=== PATIENT | female | born 1975 | race Caucasian/White ===

== ENCOUNTER → 2016-06-07 | Outpatient (CLI) | payer OTHER ==
[~2016-06-07] MED LIST: EFF75 PO; FERR1TAB23; IBUP-103 PO; LEVO50TA6 PO; MULT-513 PO; PREN-83 PO
[2016-06-07 15:40] LABS: THYROID STIMULATING HORMONE 1.59 uIu/ml (0.300-4.500)
[2016-06-07 17:46] LABS: GTGD 50 Grams
== END | disposition home or self-care (01) ==
LOC: C.LAB1850 14:32
PROVIDERS: ATTEND Obstetrics & Gynecology
DX: O99.281 Endocrine, nutritional and metabolic diseases complicating pregnancy, first trimester (principal)

== ENCOUNTER → 2016-07-06 | Outpatient (CLI) | payer OTHER ==
[2016-07-06 15:56] LABS: THYROID STIMULATING HORMONE 2.01 uIu/ml (0.300-4.500)
== END | disposition home or self-care (01) ==
LOC: C.LAB1850 14:41
PROVIDERS: ATTEND Obstetrics & Gynecology
DX: O99.282 Endocrine, nutritional and metabolic diseases complicating pregnancy, second trimester (principal); Z14.8 Genetic carrier of other disease

== ENCOUNTER → 2016-08-03 | Outpatient (CLI) | payer OTHER ==
[2016-08-11 06:18] LABS: CHENODEOXYCHOLIC ACID 0.5 umol/L (< OR = 3.1); CHOLIC ACID 1.4 umol/L (< OR = 1.8); DEOXYCHOLIC ACID <0.5 umol/L (< OR = 2.4); TOTAL BILE ACIDS 1.9 umol/L (< OR = 6.8)
== END | disposition home or self-care (01) ==
LOC: C.LAB1850 15:07
PROVIDERS: ATTEND Obstetrics & Gynecology
DX: L29.9 Pruritus, unspecified (principal)

== ENCOUNTER → 2016-08-31 | Outpatient (CLI) | payer OTHER ==
[2016-08-31 16:05] LABS: URINE APPEARANCE CLEAR (CLEAR); URINE BILIRUBIN NEG (NEG); URINE COLOR YELLOW; URINE EPITHELIAL CELL AUTO 20-30 /lpf (0-5); URINE NITRITE NEG (NEG); URINE PH 6.5 (4.5-7.5); URINE SPECIFIC GRAVITY 1.021 (1.000-1.030); UROBILINOGEN NEG (NEG)
[2016-08-31 16:10] LABS: MANUAL MICROSCOPIC REQUIRED? NO; REVIEW REQ? NO
[2016-08-31 16:50] LABS: HEMATOCRIT 30.5 % (37-47)
[2016-08-31 17:09] LABS: THYROID STIMULATING HORMONE 1.7 uIu/ml (0.300-4.500)
[2016-09-01 09:09] LABS: GTGD 50 Grams
== END | disposition home or self-care (01) ==
LOC: C.LAB1850 15:00
PROVIDERS: ATTEND Obstetrics & Gynecology
DX: O09.513 Supervision of elderly primigravida, third trimester (principal); Z3A.00 Weeks of gestation of pregnancy not specified; O99.282 Endocrine, nutritional and metabolic diseases complicating pregnancy, second trimester; E03.9 Hypothyroidism, unspecified

== ENCOUNTER → 2016-09-07 | Outpatient (CLI) | payer OTHER | END | disposition home or self-care (01) | LOC: C.LAB1850 08:50 | PROVIDERS: ATTEND Obstetrics & Gynecology | DX: O28.1 Abnormal biochemical finding on antenatal screening of mother (principal) ==

== ENCOUNTER → 2016-09-27 | Outpatient (CLI) | payer OTHER ==
[2016-09-27 10:17] LABS: THYROID STIMULATING HORMONE 3.27 uIu/ml (0.300-4.500)
== END | disposition home or self-care (01) ==
LOC: C.LAB1850 08:52
PROVIDERS: ATTEND Obstetrics & Gynecology
DX: O99.283 Endocrine, nutritional and metabolic diseases complicating pregnancy, third trimester (principal); Z3A.00 Weeks of gestation of pregnancy not specified

== ENCOUNTER → 2016-10-28 | Outpatient (CLI) | payer OTHER | END | disposition home or self-care (01) | LOC: C.LABSPEC 15:45 | PROVIDERS: ATTEND Obstetrics & Gynecology | DX: O09.93 Supervision of high risk pregnancy, unspecified, third trimester (principal); Z3A.00 Weeks of gestation of pregnancy not specified ==

== ENCOUNTER → 2016-11-14 | Outpatient (CLI) | payer OTHER ==
[2016-11-14 08:26] LABS: PATIENT HEIGHT 172.7 cm
[2016-11-14 10:23] LABS: URINE TOTAL PROTEIN 31.3 mg/dl (0-11.9)
[2016-11-14 10:40] LABS: CREATININE 0.99 mg/dl (0.6-1.2); URINE TOTAL PROTEIN CALC 309.9 mg/24 hr (0-149.1)
== END | disposition home or self-care (01) ==
LOC: C.LAB1850 08:18
PROVIDERS: ATTEND Obstetrics & Gynecology
DX: O12.13 Gestational proteinuria, third trimester (principal)

== ENCOUNTER 2016-11-15 13:16 | Emergency (ER) | payer OTHER ==
[~2016-11-15] VITALS: Ht 172.7 cm; Wt 86.0 kg
[~2016-11-15 13:16] MED LIST changes: -EFF75 PO; -FERR1TAB23; -PREN-83 PO
[2016-11-15 13:18] VITALS: TEMP 36.7; Ht 172.7 cm; Wt 86.0 kg
[2016-11-15] MEDS ORDERED: ONDANSETRON INJ 2 MG/ML 2 ML VIAL IV STA (14:01)
[2016-11-15 14:11] LABS: BASO % 0.1 %; BASO ABS # 0.01 K/uL (0-0.2); COMPLETE YES; EOS % 0.5 %; IG% 0.1 %; LYMPH % 22.2 %; LYMPH ABS # 1.65 K/uL (1.2-3.4); MEAN CELL VOLUME 88.6 fL (80-100); MEAN CORPUSCULAR HEMOGLOBIN 30.6 pg (25-34); MEAN CORPUSCULAR HGB CONC 34.5 g/dl (32-36); MEAN PLATELET VOLUME 12.9 fL (7.4-10.4); MONO % 7.8 %; NEUT % 69.3 %; PLATELET COUNT 142 K/uL (130-400); WHITE BLOOD COUNT 7.44 K/uL (4.8-10.8)
[2016-11-15] MEDS ORDERED: SODIUM CHLORIDE 0.9% 1000ML 1,000 ML IV ONE (14:15)
[2016-11-15 14:36] LABS: ALKALINE PHOSPHATASE 260 U/L (45-117); ALT/SGPT 16 U/L (12-78); AST/SGOT 21 U/L (15-37); BLOOD UREA NITROGEN 12 mg/dl (7-18); BUN/CREATININE RATIO 11.3 (10-20); CALCIUM 8.1 mg/dl (8.5-10.1); CARBON DIOXIDE 16 mmol/L (21-32); CHLORIDE 111 mmol/L (98-107); GLUCOSE 134 mg/dl (70-99); SODIUM 141 mmol/L (136-145)
--- NOTE | 2016-11-15 15:12 | DIAGNOSTIC IMAGING REPORT ---
MRI OF THE BRAIN WITHOUT CONTRAST CLINICAL HISTORY: Headache, visual changes, lightheadedness. . COMPARISON STUDY: None. FINDINGS: Sagittal T1, axial diffusion, proton density and T2 weighted axial, coronal FLAIR, and axial T1-weighted images were acquired. No intra or extra-axial mass lesions are visualized Axial diffusion-weighted images reveal no evidence of acute or subacute infarction. There is no evidence of ventricular dilatation. Proton density T2-weighted and FLAIR images reveal a single 2 mm focus of increased T2 and FLAIR signal within the left frontal white matter. There are no abnormal flow voids. IMPRESSION: Single nonspecific 2 mm focus of increased T2 and FLAIR signal within the left frontal white matter. Otherwise normal noncontrast MRI of the brain Electronically signed by: Michael Benson M.D. 11/15/2016 3:11 PM Dictated Date/Time: 11/15/2016 3:09 PM
[2016-11-15] MEDS ORDERED: PREN-83 PO (15:16)
[2016-11-15 15:26] VITALS: BP 110/89; PULSE 92; O2SAT 98
[2016-11-15 15:47] LABS: URINE APPEARANCE CLEAR (CLEAR); URINE BILIRUBIN NEG (NEG); URINE COLOR DK YELLOW; URINE EPITHELIAL CELL AUTO >30 /lpf (0-5); URINE NITRITE NEG (NEG); URINE SPECIFIC GRAVITY 1.033 (1.000-1.030); UROBILINOGEN NEG (NEG)
[2016-11-15 15:49] LABS: MANUAL MICROSCOPIC REQUIRED? NO; REVIEW REQ? NO
[2016-11-15] MEDS ORDERED: FERR1TAB23 (19:48)
[2016-11-15] MEDS ORDERED: EFF75 PO (19:48)
--- NOTE | 2016-11-16 01:14 | EMERGENCY ROOM VISIT NOTE ---
ED Visit Note First contact with patient: 13:31 Chief Complaint: Vision changes. History of Present Illness: Ms. Mattson is a 40-year-old white female who ambulates into the ED accompanied by her complaining of headache, lightheadedness and visual changes. Patient is 1 para 0 with an EDC of November 25. Historically patient reports last week she was diagnosed with preeclampsia by her [facility] with the symptoms of headache, leg swelling and proteinuria. She was seen yesterday at her [facility] and they reported there was a decrease in her proteinuria and resolution of her lower leg swelling and headache. She goes on to report that they considered inducing her yesterday but was not able to perceive. Patient reports last night she had return of moderate to severe nausea/vomiting from earlier in her . This morning she reports awaking from sleep with a bifrontal headache, visual changes, lightheadedness, "disorientation" and upper extremity joint pains. She describes a throbbing sensation in the bifrontal area. She rates this discomfort 6/10. Her pain is nonradiating. She has not identified any aggravating or alleviating factors related to the pain. She has not taken any medications for pain prior to arrival at the hospital. As previously noted she reports vision changes and describes her vision changes "as walking in a dark room after being in the sun" she reports the symptoms have been ongoing since they started and has been slowly returning to normal. Additionally she reports she has a sensation that "when looks around my vision cannot keep up with her eyes and there is a slight delay." Additionally she reports that she is lightheaded and is having paresthesias in the shoulders, arms and wrists. She has been nauseated but has not vomited this morning. Additionally she reports she is feeling disoriented and describes this as "not being able to answer questions immediately and has to think about her answers". And she has been having increasing ringing in her ears. Lastly she reports due to her regnancy and sitting or lying down she has shortness of breath. The shortness of breath resolves after she is standing in the fetuses dependent. This has been ongoing and has not significantly changed over the last 24-48 hours. She denies any associated recent head trauma, dizziness, difficulty speaking, difficulty walking/coordinating body movements, neck/back pain, upper respiratory tract symptoms cough, wheezing, chest pain/discomfort, palpitations , abdominal pain, diarrhea, constipation, urinary symptoms, back/flank pain, extremity weakness. Review of Systems: As noted above in history of present illness. All body systems were reviewed and found to be negative as noted above. Past Medical History: As previously noted Current Medications: Levothyroxine, vitamins. Allergies to Medications: Patient denies. Social History: Patient is currently employed; she feels safe in her home environment; she denies tobacco and alcohol use. Physical Examination: Vital Signs: Date Time Temp Pulse Resp B/P (MAP) Pulse Ox O2 Delivery O2 Flow Rate FiO2 11/15/16 15:26 92 18 110/89 98 Room Air 11/15/16 14:35 97 24 145/74 99 Room Air 11/15/16 13:54 109 11/15/16 13:18 36.7 107 20 132/92 98 GENERAL: 40-year-old female in mild distress due to pain and appears mildly dyspneic with pursed lips with breathing and a slight increase in respiratory rate, nontoxic-appearing, afebrile and hemodynamically stable. NEUROLOGICAL: Awake, alert and oriented to person, place and time. Answering questions appropriately and following commands. Normal gait. Cranial nerves II through XII grossly intact. Good hand eye coordination. No focal motor or sensory deficits. Good short-term and long-term recall. SKIN: Warm, dry and pink. No soft tissue eruptions or trauma noted. HEENT: Atraumatic and normocephalic. PERRLA. EOMI without nystagmus. Sclera white and conjunctiva pink. No frontal tenderness or erythema. No drainage from naris. Oral cavity moist and pink. Pharynx is nonerythematous or edematous. Speech normal. No lymphadenopathy. Trachea midline. No jugular venous distention. BACK: No tenderness over the bony spine. Full range of motion of the cervical spine. No CVA tenderness. THORAX: Lungs sounds are clear to auscultation and equal bilaterally with symmetrical chest wall. No wheezing, rales or rhonchi. No crepitus, tenderness , subcutaneous air or deformities noted. HEART: Tachycardic rate and rhythm. No gallops, rubs or murmurs are appreciated. ABDOMEN: , soft and nontender. Positive bowel sounds in all quadrants. No guarding, rigidity or organomegaly. EXTREMITIES: Moves all extremities well on command and with purpose. All distal neurovascular statuses are intact and equal bilaterally. No dependent edema. No calf tenderness or cords. ED Course: Patient is assessed as noted above. Patient's medication list was reviewed. Laboratory Testing: Test 11/15/16 00:00 11/15/16 13:50 Range/Units Urine Color DK YELLOW Urine Appearance CLEAR CLEAR Urine pH 6.0 4.5-7.5 Urine Specific [place] 1.033 1.000-1.030 Urine Protein TRACE NEG Urine Glucose (UA) NEG NEG Urine Ketones TRACE NEG Urine Occult Blood NEG NEG Urine Nitrite NEG NEG Urine Bilirubin NEG NEG Urine Urobilinogen NEG NEG Urine Leukocyte Esterase NEG NEG Urine WBC (Auto) 1-5 0-5 /hpf Urine RBC (Auto) 0-4 0-4 /hpf Urine Hyaline Casts (Auto) 1-5 0-5 /lpf Urine Epithelial Cells (Auto) >30 0-5 /lpf Urine Bacteria (Auto) NEG NEG White Blood Count 7.44 4.8-10.8 K/uL Red Blood Count 3.50 4.2-5.4 M/uL Hemoglobin 10.7 12.0-16.0 g/dL Hematocrit 31.0 37-47 % Mean Corpuscular Volume 88.6 80-100 fL Mean Corpuscular Hemoglobin 30.6 25-34 pg Mean Corpuscular Hemoglobin Concent 34.5 32-36 g/dl Platelet Count 142 130-400 K/uL Mean Platelet Volume 12.9 7.4-10.4 fL Neutrophils (%) (Auto) 69.3 % Lymphocytes (%) (Auto) 22.2 % Monocytes (%) (Auto) 7.8 % Eosinophils (%) (Auto) 0.5 % Basophils (%) (Auto) 0.1 % Neutrophils # (Auto) 5.15 1.4-6.5 K/uL Lymphocytes # (Auto) 1.65 1.2-3.4 K/uL Monocytes # (Auto) 0.58 0.11-0.59 K/uL Eosinophils # (Auto) 0.04 0-0.5 K/uL Basophils # (Auto) 0.01 0-0.2 K/uL RDW Standard Deviation 41.6 36.4-46.3 fL RDW Coefficient of Variation 13.0 11.5-14.5 % Immature Granulocyte % (Auto) 0.1 % Immature Granulocyte # (Auto) 0.01 0.00-0.02 K/uL Sodium Level 141 136-145 mmol/L Potassium Level 4.0 3.5-5.1 mmol/L Chloride Level 111 98-107 mmol/L Carbon Dioxide Level 16 21-32 mmol/L Anion Gap 14.0 3-11 mmol/L Blood Urea Nitrogen 12 7-18 mg/dl Creatinine 1.10 0.60-1.20 mg/dl Est Creatinine Clear Calc Drug Dose 79.6 ml/min Estimated GFR () 73.8 Estimated GFR (Non- 63.6 BUN/Creatinine Ratio 11.3 10-20 Random Glucose 134 70-99 mg/dl Calcium Level 8.1 8.5-10.1 mg/dl Magnesium Level 2.0 1.8-2.4 mg/dl Total Bilirubin 0.4 0.2-1 mg/dl Direct Bilirubin 0-0.2 mg/dl Aspartate Amino Transf (AST/SGOT) 21 15-37 U/L Alanine Aminotransferase (ALT/SGPT) 16 12-78 U/L Alkaline Phosphatase 260 45-117 U/L Total Protein 6.2 6.4-8.2 gm/dl Albumin 2.3 3.4-5.0 gm/dl Chemistry Specimen Hemolysis EKG: Was read by myself and reviewed with Dr. Still; shows sinus tachycardia with a ventricular rate of 107 bpm. Normal axis, intervals and complexes. No acute ST changes indicating ischemia, injury or infarction. This was compared to previous from September 2015 and no acute changes were noted. Brain MRI: Was reviewed by myself and read by the radiologist showing a single nonspecific 2 mm focus of increased T2 and FLAIR signal within the left frontal white matter. Patient was hydrated with normal saline and received 4 mg of Zofran IV for nausea. Patient was offered pain medication and refused. Patient was reassessed multiple times during her stay in the emergency department. Patient's case was reviewed with Dr. Still; we agreed on diagnostic approach , treatment, disposition and plan. Patient's case was consulted with Dr. Bass, obstetrics; after patient's MRI to evaluate for a stroke patient should be discharged for referral to the OB/ [facility] department. Patient and were educated about today's findings. Clinical Impression: Headache. Visual changes. Decision-Making: Initially my differential diagnosis I considered TIA, CVA, eclampsia, primary headache, electrolyte abnormality, metabolic disturbance and other causes. Disposition: Patient discharged to the labor and delivery suite in stable condition; prior to departure she was reassessed and subjectively reported she was feeling better and rated her discomfort 4/10. She also reported she had resolution of nausea. And just prior to leaving the ED patient reports she was having contractions. Plan: Patient was discharged and taken immediately to the labor and delivery suite for further evaluation and care.
== END 2016-11-15 15:36 | disposition home or self-care (01) ==
LOC: C.EDB 13:18 → C.EDC 15:36
DX: R51 Headache (principal); H53.9 Unspecified visual disturbance

== ENCOUNTER 2016-11-15 15:53 | Outpatient (CLI) | payer OTHER ==
[~2016-11-15] VITALS: Ht 172.7 cm; Wt 85.9 kg
[~2016-11-15 15:53] MED LIST changes: +PREN-83 PO
[2016-11-15] MEDS ORDERED: LACTATED RINGER'S 1000ML 1,000 ML IV SCH (16:00)
[2016-11-15] MEDS ORDERED: LACTATED RINGER'S 1000ML 1,000 ML IV PRN (16:00)
[2016-11-15 16:18] LABS: MEAN CELL VOLUME 89.3 fL (80-100); MEAN CORPUSCULAR HEMOGLOBIN 29.4 pg (25-34); MEAN CORPUSCULAR HGB CONC 32.9 g/dl (32-36); MEAN PLATELET VOLUME 12.2 fL (7.4-10.4); PLATELET COUNT 147 K/uL (130-400); RED BLOOD COUNT 3.47 M/uL (4.2-5.4); WHITE BLOOD COUNT 7.67 K/uL (4.8-10.8)
[2016-11-15 19:42] VITALS: Ht 172.7 cm; Wt 85.9 kg
[2016-11-15] MEDS ORDERED: EFF75 PO (19:48)
[2016-11-15] MEDS ORDERED: FERR1TAB23 (19:48)
[2016-11-16] MEDS ORDERED: LEVOTHYROXINE 50 MCG TAB PO SCH (07:30)
== END 2016-11-15 18:20 | disposition home or self-care (01) ==
LOC: C.OPB 15:53 → C.LD 15:54 → C.OPB 18:20
PROVIDERS: ATTEND Obstetrics & Gynecology
DX: O12.13 Gestational proteinuria, third trimester (principal); O26.893 Other specified pregnancy related conditions, third trimester; R42 Dizziness and giddiness; H53.9 Unspecified visual disturbance; Z3A.38 38 weeks gestation of pregnancy

== ENCOUNTER 2016-11-16 07:25 | Inpatient (IN) | payer OTHER ==
[~2016-11-16] VITALS: Ht 172.7 cm; Wt 85.9 kg
[~2016-11-16 07:25] MED LIST changes: +EFF75 PO; +FERR1TAB23; -IBUP-103 PO; -MULT-513 PO
[2016-11-16] MEDS ORDERED: LACTATED RINGER'S 1000ML 1,000 ML IV PRN (07:57)
[2016-11-16] MEDS ORDERED: OXYTOCIN 30 UNITS/500ML NSS IV PRN (08:00)
[2016-11-16] MEDS ORDERED: LACTATED RINGER'S 1000ML 500 ML IV PRN ×2 (08:00→16:45)
[2016-11-16 08:12] VITALS: Ht 172.7 cm; Wt 85.9 kg
[2016-11-16 08:22] LABS: HEMATOCRIT 30.9 % (37-47); MEAN CELL VOLUME 89.6 fL (80-100); MEAN CORPUSCULAR HEMOGLOBIN 30.1 pg (25-34); MEAN CORPUSCULAR HGB CONC 33.7 g/dl (32-36); PLATELET COUNT 142 K/uL (130-400); RED BLOOD COUNT 3.45 M/uL (4.2-5.4); WHITE BLOOD COUNT 8.69 K/uL (4.8-10.8)
[2016-11-16] MEDS: VENLAFAXINE HCL 50 MG TAB PO SCH (08:56)
[2016-11-16] MEDS: LEVOTHYROXINE 50 MCG TAB PO SCH (08:57)
[2016-11-16] MEDS: LACTATED RINGER'S 1000ML 1,000 ML IV SCH ×3 (08:57→22:32)
[2016-11-16] MEDS ORDERED: MoRPHine SULFATE 2 MG/ML CARP IV STA (09:57)
[2016-11-16] MEDS ORDERED: ONDANSETRON INJ 8 MG in DEXTROSE 5% 50ML 50 ML IV ONE (10:00)
[2016-11-16] MEDS ORDERED: ONDANSETRON 8 MG/54 ML D5W IV ONE (10:00)
[2016-11-16] MEDS ORDERED: EpHEDrine SULFATE INJ 50 MG/ML AMP ONE (15:46)
[2016-11-16] MEDS ORDERED: FENTANYL 2MCG/ML ROPIV 1.25MG/ML 100ML BAG EPI ONE (15:46)
[2016-11-16] MEDS ORDERED: BUPIVACAINE 0.25% 30 ML VIAL ONE ×2 (15:46→22:01)
[2016-11-16] MEDS ORDERED: FENTANYL CITRATE INJ 50 MCG/1 ML 2 ML VIAL ONE ×2 (15:47→22:02)
[2016-11-16] MEDS ORDERED: NALOXONE HCL INJ 1 MG in SODIUM CHLORIDE 0.9% 1000ML 1,000 ML IV PRN ×4 (16:45)
[2016-11-16] MEDS ORDERED: EpHEDrine SULFATE INJ 50 MG/ML AMP IV PRN (16:45)
[2016-11-16] MEDS ORDERED: PROMETHAZINE HCL INJ 25 MG in SODIUM CHLORIDE 0.9% 50ML 50 ML IV PRN (16:45)
[2016-11-16] MEDS ORDERED: ONDANSETRON INJ 2 MG/ML 2 ML VIAL IV PRN (16:45)
[2016-11-16] MEDS ORDERED: NALOXONE HCL INJ 0.4 MG/1 ML VIAL/CARP IV PRN (16:45)
[2016-11-16] MEDS ORDERED: NALBUPHINE HCL INJ 10 MG/ML AMP IV PRN (16:45)
[2016-11-16] MEDS ORDERED: DiphenhydrAMINE HCL 50 MG/ML VIAL IV PRN (16:45)
[2016-11-16] MEDS ORDERED: EpHEDrine SULFATE INJ 50 MG/ML AMP IV ONE (19:00)
--- NOTE | 2016-11-16 22:09 | Anesthesiology Progress Note ---
Post OP Pain Management Date & Time of Service Nov 16, 2016 at 22:06 Subjective Therapies: Epidural/IV Drugs, Marcaine, Fentanyl pain is 9/10; Objective Cathether Site: examined, palpated, intact, dry, non-tender, without erythma, without exudate Assessment & Plan Pain Relief Assessment: pt. epidural bolused with 12 ml 0.17% bupivacaine + 100 mcgs fentanyl;neg. aspiration for blood or CSF;vital signs stable Plan: epidural catheter bolused
[2016-11-16] MEDS: FENTANYL 2MCG/ML ROPIV 1.25MG/ML 100ML BAG EPI PRN (23:06)
[2016-11-17] MEDS: FENTANYL 2MCG/ML ROPIV 1.25MG/ML 100ML BAG EPI PRN (00:25)
[2016-11-17] MEDS: LACTATED RINGER'S 1000ML 1,000 ML IV SCH (03:00)
[2016-11-17] MEDS ORDERED: LACTATED RINGER'S 1000ML 1,000 ML IV SCH (04:07)
[2016-11-17] MEDS ORDERED: OXYTOCIN 30 UNITS/500ML NSS IV PRN (04:15)
[2016-11-17] MEDS ORDERED: LANOLIN OINT EXT PRN ×2 (04:15)
[2016-11-17] MEDS ORDERED: HYDROCORTISONE ACETATE 25 MG SUPP PR PRN (04:15)
[2016-11-17] MEDS ORDERED: BENZOCAINE 20% AER SPR 82.5 GM CAN EXT PRN (04:15)
[2016-11-17] MEDS ORDERED: ACETAMINOPHEN 325 MG TAB PO PRN (04:15)
[2016-11-17] MEDS ORDERED: SUPERCREAM 0.870 % 15GM JAR EXT PRN (04:15)
[2016-11-17] MEDS: IBUPROFEN 600 MG TAB PO PRN (05:11)
--- NOTE | 2016-11-17 05:34 | Anesthesia Procedure Note ---
Anesthesia Epidural Removal Nt Date & Time Nov 17, 2016 at 05:34 Vital Signs Pain Intensity: 8.0 Notes Mental Status: alert / awake / arousable, participated in evaluation Nausea / Vomiting: adequately controlled Pain: adequately controlled Airway Patency, RR, SpO2: stable & adequate BP & HR: stable & adequate Hydration State: stable & adequate Neuraxial Anesthesia: was administered Anesthetic Complications: no major complications apparent, pt satisfied with anesthetic care Epidural: removed without complications, with tip intact
--- NOTE | 2016-11-17 05:50 | DELIVERY SUMMARY ---
DATE OF OPERATION: 11/17/2016 COURSE OF CARE: Morenita Mattson is a 1, para 0, who presented with mild preeclampsia and was admitted for induction by my partner, Dr. Bass. I assumed care for her in the morning of 11/16/2016. Her induction was continued with Pitocin. She received an epidural for pain management. She reached complete dilation with an urge to push. I was called to the room for the delivery when the head was nearly . Through several additional pushes, the patient experienced a prolonged phase and alternately then did deliver the head of the baby in the occiput anterior position. The right/anterior shoulder delivered first, followed by the left/posterior shoulder, followed by the remainder of the 's body with no difficulty. The infant was placed on the maternal abdomen, the cord was doubly clamped and cut by the father of the baby. The was taken to the warmer. The placenta delivered spontaneously and was found to be intact with a 3-vessel cord. There were no lacerations of the cervix, vagina or perineum. However, there was a left labial separation, which was reapproximated, for cosmetic reasons, using 4-0 Monocryl. At the completion of repair, the patient and infant were in stable condition. The fundus was firm, lochia was minimal. I attest to the content of the Intraoperative Record and any orders documented therein. Any exception s are noted below.
[2016-11-17 06:00] VITALS: BP 122/79; PULSE 80; TEMP 36.9
[2016-11-17] MEDS: OXYCODONE/ACETAMINOPHEN 5-325 TAB PO PRN ×3 (06:13→19:54)
[2016-11-17] MEDS: LEVOTHYROXINE 50 MCG TAB PO SCH (07:43)
[2016-11-17] MEDS: PRENATAL VITAMIN TAB PO SCH (07:43)
[2016-11-17] MEDS: DOCUSATE SODIUM 100 MG CAP PO SCH ×2 (07:43→19:53)
[2016-11-17] MEDS: VENLAFAXINE HCL 50 MG TAB PO SCH (07:43)
[2016-11-17 08:18] VITALS: BP 112/72; PULSE 75; TEMP 37.1; O2SAT 98
[2016-11-17 11:50] VITALS: BP 117/71; PULSE 72; TEMP 37.3; O2SAT 100
[2016-11-17 15:40] VITALS: BP 128/82; PULSE 84; TEMP 36.4; O2SAT 100
[2016-11-17 19:40] VITALS: BP 136/92; PULSE 80; TEMP 36.8
[2016-11-18 00:20] VITALS: BP 117/74; PULSE 80; TEMP 36.5
[2016-11-18] MEDS: OXYCODONE/ACETAMINOPHEN 5-325 TAB PO PRN ×4 (00:28→20:23)
--- NOTE | 2016-11-18 07:12 | Progress Note ---
Subjective Nov 18, 2016. Subjective conversation w/ patient, physical exam Ambulation: ambulating normally Voiding: no voiding problems Passing Gas: Yes Diet Tolerance: Regular Diet Lochia: Moderate Feeding Type: Breast Feeding Pain: controlled Review of Systems Constitutional: No problem reported Respiratory: No problem reported Cardiac: No problem reported Breast: No problem reported Abdomen: No problem reported Female : No problem reported Objective Vital Signs Date Time Temp Pulse Resp B/P (MAP) Pulse Ox O2 Delivery O2 Flow Rate FiO2 11/18/16 00:20 36.5 80 19 117/74 (88) Room Air 11/18/16 00:20 Room Air 11/17/16 19:40 36.8 80 20 136/92 (107) 11/17/16 15:40 100 Room Air 11/17/16 15:40 36.4 84 18 128/82 (97) 100 Room Air 11/17/16 11:50 37.3 72 18 117/71 (86) 100 Room Air 11/17/16 08:18 37.1 75 18 112/72 (85) 98 Room Air 11/17/16 07:45 Room Air Physical Exam General Appearance: WELL-APPEARING, NO APPARENT DISTRESS Respiratory/Chest: no respiratory distress Cardiovascular: regular rate, rhythm Abdomen: non tender, soft Fundus: Firm Extremities: normal inspection Laboratory Results Last 24 Hours Test 11/18/16 06:38 Assessment and Plan Problem List Medical Problems: (1) Headache Status: Acute Post- Day#: 1 Continue Routine Care: PPD#1 doing well. Continue routine care.
[2016-11-18 07:13] LABS: HEMATOCRIT 29.1 % (37-47)
[2016-11-18] MEDS: LEVOTHYROXINE 50 MCG TAB PO SCH (07:35)
[2016-11-18] MEDS: PRENATAL VITAMIN TAB PO SCH (08:44)
[2016-11-18] MEDS: DOCUSATE SODIUM 100 MG CAP PO SCH ×2 (08:44→20:23)
[2016-11-18] MEDS: VENLAFAXINE HCL 50 MG TAB PO SCH (08:45)
[2016-11-18] MEDS ORDERED: DIPHTHERIA/TETANUS/PERTUSSIS 0.5 ML SYR/VIAL IM. ONE (09:00)
[2016-11-18 09:06] VITALS: BP 122/80; PULSE 71; TEMP 36.4; O2SAT 100
[2016-11-18 15:30] VITALS: BP 112/67; PULSE 73; TEMP 37.1
[2016-11-18] MEDS: IBUPROFEN 600 MG TAB PO PRN ×2 (16:22→20:23)
[2016-11-18 19:30] VITALS: BP 144/88; PULSE 80; TEMP 36.5
--- NOTE | 2016-11-18 22:56 | Discharge Instructions ---
Discharge Instructions Date of Service Nov 18, 2016. Admission Reason for Admission: Induction Discharge Discharge Diagnosis / Problem: after delivery Discharge Goals Goal(s): Routine recovery after delivery Medications Continue Dispensed Medications: supercream, dermaplast, tucks, lansinoh Activity Recommendations Activity Limitations: as noted below . Instructions / Follow-Up Instructions / Follow-Up ACTIVITY RECOMMENDATIONS: * Gradual return to full activity over the next 2-3 weeks. * No lifting - nothing heavier than baby over the next 2-3 weeks. * Do not engage in vigorous exercise, sexual activity or sports until cleared by your physician. * Do not drive or operate any motorized equipment until cleared by your physician. * You may shower/bathe daily. MEDICATIONS: For discomfort or pain, you may use Acetaminophen (Tylenol), Ibuprofen (Advil), or Naproxen (Aleve) following the package directions. For constipation you may use Colace following the package directions. BREAST CARE: If you are not breast feeding: * Wear a supportive bra 24 hours a day for one to two weeks. * Avoid stimulating your breasts and nipples as much as possible during the first few weeks after delivery. * When taking a shower, have the warm water hit your back, not breasts. * When your breasts feel full, apply ice packs. Usually three to four times a day helps ease the discomfort. * Take a mild pain medication (Tylenol / Motrin) when you are uncomfortable. If breast feeding: * Use breast milk to lubricate nipples. Lansinoh cream may be used for sore nipples. You do not need to remove cream prior to breast feeding. If using a different brand of cream, check the label for directions regarding removal of cream prior to nursing. * Wear a supportive bra. * If having problems with breasts or breast feeding, call a consultant rn or your health care provider. EPISIOTOMY CARE: After delivery, if you have an episiotomy (stitches), the following steps will ease discomfort and aid healing. * For the first 24 hours after delivery, place ice packs next to your episiotomy to help reduce swelling. * After the first 24 hour-period, sitz baths, either portable or in the tub, are suggested. A shower with a shower arm sprayed over the episiotomy may be comforting. * Anat care should be done after each voiding and bowel movement. Squirt warm water from a plastic bottle over the perineum (region of the body between the anus and urinary opening) and pat dry. * Use Dermoplast to ease discomfort. Shake container. [place] directly over the episiotomy. Place a Tucks on a clean sanitary pad next to your episiotomy. SPECIAL CARE INSTRUCTIONS: When you are discharged from the hospital, it is important for you to follow the instructions listed below: * During the first week at home, you should be able to care for yourself and your baby. In addition, the usual light household activities are encouraged. * Limit your activities to the way you feel. Do not try to clean the house or move furniture. Be sensible. * If you actively engage in sports and have done so up until the time of your delivery, you may resume these activities as soon as you feel able. This may take up to one month or even longer. Use good judgment. * Continue to take your vitamins for at least six weeks after the of your baby. * Your diet need not be limited unless you were on a special diet before your delivery. Breast-feeding mothers need around 2500 calories per day and at least 64-80 ounces of fluid per day (8 to 10 glasses). * You should eat foods from the four major food groups. Crash diets or fad diets are to be avoided. Eating lean meats, fresh fruits and vegetables, low-fat dairy products, high fiber foods and a regular exercise program, will help you get back to your pre- weight without putting your health at risk. * Constipation is sometimes a problem after delivery. Take a mild laxative as needed. If breast feeding, Milk of Magnesia is acceptable to use. You may use a suppository or Fleets enema if no episiotomy. * A daily shower or tub bath is suggested. Be sure to thoroughly and gently dry the perineum. * A bloody vaginal discharge will usually continue until around four weeks post . A small amount of bleeding may continue for as long as six weeks. Vaginal discharge changes from the bright red bleeding after delivery to pink then brownish and finally yellowish-pink before becoming white and disappearing. * Bleeding may increase with activity. Your first period may come in 4-8 weeks. If you are breast feeding, your period may be delayed even longer. * Stephenson (sex) can begin whenever both you and your partner feel comfortable and do not have any form of genital infection. It is recommended that you wait at least six weeks for internal and external healing to occur. If you have questions, please talk to your health care practitioner. A condom should be used to prevent infection and . * Foreplay, gentle intercourse and lubrication is very important the first several times to prevent pain. A water-based lubricant such as K-Y jelly or Astroglide may be used. * If you have RH negative blood and your baby is RH positive, you will receive RHOGAM by injection prior to discharge. The nurse will give you a card to keep with you that has the date and place that you received RHOGAM after delivery. * During your care, you had a Rubella screen done to check for the presence of rubella antibodies in your blood. If your test was negative, you will receive a Rubella vaccine prior to discharge. This vaccine may cause a fever, soreness at the injection site and flu-like symptoms. If these symptoms persist, notify your health care practitioner. is not advised for one month after a Rubella vaccine. * Verbalizes understanding of car seat law as reviewed with patient nursing. * Car Seat hand-out given and reviewed with patient by nursing. * Shaken baby information reviewed with patient by nursing. Call you doctor if: * Heavy bleeding (saturating several pads an hour) or passing clots the size of your fist. * A fever >101 degrees F (38.3 degrees C) on two occasions four hours apart and /or chills. * Unusual pain in the pelvic or vaginal areas. * "Baby Blues" lasting longer than two weeks. If you have any questions or concerns, call your health care practitioner at . FOLLOW UP VISIT: * Please call the office at to schedule a 6 week examination. It is important you keep this appointment. It is important for you to make arrangements for either yearly or twice yearly check-ups thereafter. Current Hospital Diet Patient's current hospital diet: Regular OB Diet Discharge Diet Recommended Diet: Regular Diet Pending Studies Studies pending at discharge: no Medical Emergencies . Who to Call and When: Medical Emergencies: If at any time you feel your situation is an emergency, please call 911 immediately. . Non-Emergent Contact Non-Emergency issues call your: [facility] . . "Provider Documentation" section prepared by Ruth Landaverde. . VTE Core Measure Inpt VTE Proph given/why not?: Treatment not indicated
[2016-11-18 23:45] VITALS: BP 125/78; PULSE 89; TEMP 36.6
[2016-11-19] MEDS: IBUPROFEN 600 MG TAB PO PRN ×3 (00:26→15:58)
[2016-11-19] MEDS: OXYCODONE/ACETAMINOPHEN 5-325 TAB PO PRN ×2 (00:27→08:34)
--- NOTE | 2016-11-19 07:18 | Progress Note ---
Subjective Nov 19, 2016. Subjective conversation w/ patient, physical exam Ambulation: ambulating normally Voiding: no voiding problems Diet Tolerance: Regular Diet Lochia: Small Feeding Type: Breast Feeding Pain: some right muscle pain Objective Vital Signs Date Time Temp Pulse Resp B/P (MAP) Pulse Ox O2 Delivery O2 Flow Rate FiO2 11/18/16 23:45 36.6 89 18 125/78 (94) Room Air 11/18/16 23:45 Room Air 11/18/16 19:30 36.5 80 20 144/88 (106) Room Air 11/18/16 15:30 Room Air 11/18/16 15:30 37.1 73 20 112/67 (82) Room Air 11/18/16 09:06 36.4 71 16 122/80 (94) 100 Room Air 11/18/16 07:20 Room Air Physical Exam General Appearance: WELL-APPEARING, WD/WN, NO APPARENT DISTRESS Respiratory/Chest: lungs clear Cardiovascular: regular rate, rhythm Abdomen: non tender, soft Fundus: Firm, Relation to Umbilicus (2 down) Extremities: non-tender Assessment and Plan Problem List Medical Problems: (1) Headache Status: Acute Post- Day#: 2 Continue Routine Care: stable d/c home, instructions reviewed. f/u 6wks pp.
[2016-11-19] MEDS ORDERED: LEVOTHYROXINE 75 MCG TAB PO SCH (07:30)
[2016-11-19 07:33] VITALS: BP 118/79; PULSE 78; TEMP 36.9
[2016-11-19] MEDS: DOCUSATE SODIUM 100 MG CAP PO SCH (07:48)
[2016-11-19] MEDS: PRENATAL VITAMIN TAB PO SCH (07:48)
[2016-11-19] MEDS: VENLAFAXINE HCL 50 MG TAB PO SCH (07:48)
[2016-11-19] MEDS: LEVOTHYROXINE 50 MCG TAB PO SCH (07:48)
[2016-11-19] MEDS ORDERED: NURSING VERBAL MED ORDER ONE (08:00)
[2016-11-19 16:00] VITALS: BP 136/88; PULSE 75; TEMP 37.1
[2016-11-19 18:20] VITALS: BP_DIAS 88; PULSE 75; TEMP 37.1
== END 2016-11-19 18:20 | disposition home or self-care (01) | DRG 775 ==
LOC: C.LD 07:25 → C.OBG 11-17 06:03
PROVIDERS: ADMIT Obstetrics & Gynecology; ATTEND Obstetrics & Gynecology
PROC: 10E0XZZ Delivery of Products of Conception, External Approach (ICD-10-PCS; principal; 2016-11-17)
DX: O14.04 Mild to moderate pre-eclampsia, complicating childbirth (principal); Z37.0 Single live birth; O26.893 Other specified pregnancy related conditions, third trimester; N94.89 Other specified conditions associated with female genital organs and menstrual cycle

== ENCOUNTER → 2016-12-27 | Outpatient (CLI) | payer OTHER | END | disposition home or self-care (01) | LOC: C.PAPS 09:47 | PROVIDERS: ATTEND Obstetrics & Gynecology | DX: Z12.4 Encounter for screening for malignant neoplasm of cervix (principal) ==

== ENCOUNTER 2017-07-24 11:07 | Observation (INO) | payer OTHER ==
[~2017-07-24] VITALS: Ht 172.7 cm; Wt 68.4 kg
[2017-07-24] MEDS ORDERED: ONDANSETRON INJ 2 MG/ML 2 ML VIAL IV STA (11:38)
[2017-07-24] MEDS ORDERED: KETOROLAC TROMETHAMINE 30 MG/ML VIAL IV STA (11:38)
[2017-07-24] MEDS ORDERED: SODIUM CHLORIDE 0.9% 1000ML 1,000 ML IV STA (11:38)
[2017-07-24] MEDS ORDERED: OPTIRAY 320 IV PRN (11:45)
[2017-07-24 11:48] LABS: BASO % 0.1 %; BASO ABS # 0.01 K/uL (0-0.2); EOS % 0.1 %; EOS ABS # 0.01 K/uL (0-0.5); HEMATOCRIT 40.7 % (37-47); HEMOGLOBIN 14.6 g/dL (12.0-16.0); IG# 0.02 K/uL (0.00-0.02); LYMPH % 14.5 %; LYMPH ABS # 1.26 K/uL (1.2-3.4); MEAN CELL VOLUME 88.1 fL (80-100); MEAN CORPUSCULAR HEMOGLOBIN 31.6 pg (25-34); MEAN CORPUSCULAR HGB CONC 35.9 g/dl (32-36); MEAN PLATELET VOLUME 9.5 fL (7.4-10.4); MONO % 6.3 %; MONO ABS # 0.55 K/uL (0.11-0.59); NEUT % 78.8 %; NEUT ABS # 6.86 K/uL (1.4-6.5); PLATELET COUNT 213 K/uL (130-400); RED CELL DISTRIBUTION WIDTH CV 13.2 % (11.5-14.5); RED CELL DISTRIBUTION WIDTH SD 42.5 fL (36.4-46.3); WHITE BLOOD COUNT 8.71 K/uL (4.8-10.8)
[2017-07-24 12:06] LABS: CALCIUM 8.6 mg/dl (8.5-10.1); CREATININE 1.03 mg/dl (0.60-1.20); POTASSIUM 3.3 mmol/L (3.5-5.1)
[2017-07-24 12:09] LABS: TOTAL PROTEIN 8.3 gm/dl (6.4-8.2)
[2017-07-24] MEDS ORDERED: THYR15TA PO (12:20)
--- NOTE | 2017-07-24 12:38 | DIAGNOSTIC IMAGING REPORT ---
ABD/PELVIS IV CONTRAST ONLY CLINICAL HISTORY: 41 years-old Female presenting with ABD PAIN, POSS APPY, IV CONTRAST ONLY. TECHNIQUE: Multidetector CT of the abdomen and pelvis was performed after the administration of intravenous contrast. IV contrast: 120 mL of Optiray 320. A dose lowering technique was used consistent with the principles of ALARA (as low as reasonably achievable). COMPARISON: None. CT DOSE (mGy.cm): The estimated cumulative dose is 317.29 mGy.cm. FINDINGS: Color Specialist topogram: Cholecystectomy clips noted. Lung bases: Lungs and pleural spaces clear. Normal heart size. No pericardial or pleural effusion. Liver: Normal morphology. No liver lesion. Patent hepatic vasculature. Biliary: Mild biliary ductal prominence likely a reservoir effect in the post cholecystectomy state. Gallbladder surgically absent. Pancreas: Normal. Spleen: Normal. Adrenal glands: Normal. Kidneys and ureters: Normal. No hydronephrosis. Bladder: Incompletely evaluated secondary to underdistention. Pelvic organs: Normal. Bowel: The appendix is mildly prominent measuring slightly more than 6 mm in diameter with minimal mucosal hyperenhancement suggested. However, no extensive periappendiceal inflammatory change. Mildly distended and fluid-filled loop of distal ileum in the pelvis. No significant small bowel wall thickening or evidence of perienteric inflammatory change. No convincing evidence of bowel obstruction significant fluid in the distal small bowel. Peritoneal cavity: Trace free fluid in the pelvis. Lymph nodes: No enlarged lymph nodes in the abdomen or pelvis. Vasculature: Aorta and IVC patent and normal in caliber. Abdominal wall: Normal. Musculoskeletal: Normal. IMPRESSION: 1. Nonspecific distention of distal ileum without evidence of bowel wall thickening or perienteric inflammatory change. Additionally, the degree of fluid in the distal ileum is somewhat unexpected. These subtle findings could suggest potential enteritis or celiac disease. Alternatively, this could be secondarily reactive and related to the presence of a mild ileus. 2. The appendix is mildly prominent with possible mucosal hyperenhancement. Early appendicitis is not excluded. However, no extensive periappendiceal inflammatory change. Continued follow-up is recommended. The position of the appendix would likely be amenable to subsequent ultrasound examination for follow-up if clinically desired. The report will be called/faxed according to standard departmental protocol. Electronically signed by: Nitish Nam M.D. 07/24/2017 12:36 PM Dictated Date/Time: 07/24/2017 12:28 PM
[2017-07-24] MEDS ORDERED: SODIUM CHLORIDE 0.9% 500ML 500 ML IV STA (13:20)
[2017-07-24] MEDS ORDERED: SODIUM CHLORIDE 0.9% 1000ML 1,000 ML IV SCH (14:14)
[2017-07-24] MEDS ORDERED: MoRPHine SULFATE 2 MG/ML CARP IV PRN ×2 (14:15)
[2017-07-24] MEDS ORDERED: OXYCODONE/ACETAMINOPHEN 5-325 TAB PO PRN ×2 (14:15)
[2017-07-24] MEDS ORDERED: ACETAMINOPHEN 325 MG TAB PO PRN ×2 (14:15→17:00)
[2017-07-24] MEDS ORDERED: MoRPHine SULFATE 4 MG/ML 1 ML CARP\\VIAL IV PRN (14:15)
[2017-07-24] MEDS ORDERED: CEFOXITIN SOD 2 GM VIAL IV ONE (14:15)
[2017-07-24] MEDS ORDERED: ONDANSETRON INJ 2 MG/ML 2 ML VIAL IV PRN ×4 (14:15→17:00)
--- NOTE | 2017-07-24 14:32 | History and Physical ---
History & Physical Date & Time of Service: Jul 24, 2017 at 14:19 Chief Complaint: Severe Abdominal Pain Referred Primary Care Physician: Deedee Estrada C.R.N.P. History of Present Illness Source: patient Morenita is a pleasant 41 year-old female who presented to emergency room with complaint of abdominal pain that started yesterday. Describes pain as generalized pain which increased last evening after dinner. Pain now more so in the right lower abdomen. Pain rated 8/10 currently. States that walking and any movement increase the pain. Associated sweats, chills, nausea, vomiting, and diarrhea. Also has noticed decreased appetite. No prior history of similar abdominal pain. No fevers, chest pain, shortness of breath, difficulty breathing, blood in stools, difficulty urinating or blood in urine. Currently breast feeding. No history of blood clots or use of blood thinning agents. ER evaluation showed no leukocytosis. CMP within normal limits other than slightly low potassium at 3.3. CT scan of abdomen and pelvis showed mild distention of distal ileum with increasing fluid in ileum however no wall thickening or signs of obstruction. This could be due to enteritis or celiacs disease. The appendix is mildly prominent with possible mucosal hyperenhancement. Early appendicitis is not excluded. Past Medical/Surgical History Past Medical History: AMA (advanced maternal age) primigravida 35+ Chest pain Costochondritis Cholelithiasis with cholecystitis Gestational hypertension Head injury Hypothyroidism Neck pain Syncope Past Surgical History: 1. Laparoscopic Cholecystectomy Family History Diabetes mellitus FH: heart disease FHx: cancer Social History Smoking Status: Never Smoker Drug Use: none Marital Status: single Occupational Status: employed Immunizations History of Influenza Vaccine: No History of Tetanus Vaccine?: Unknown History of Pneumococcal: No History of Hepatitis B Vaccine: No Multi-Drug Resistant Organisms History of MDRO: No Allergies Coded Allergies: No Known Allergies (Verified , 07/24/17) Home Medications Scheduled Thyroid ([place] Thyroid), 1 TAB PO DAILY Review of Systems Constitutional: + chills, + sweats, No fever Respiratory: No cough, No wheezing, No shortness of breath Cardiovascular: No chest pain Abdomen: + pain, + nausea, + vomiting, + diarrhea, No constipation, No GI bleeding Musculoskeletal: No joint pain Genitourinary - Female: No dysuria, No urinary frequency, No urinary urgency, No urinary incontinence, No hematuria Hematologic / Lymphatic: No abnormal bleeding/bruising Integumentary: No rash Physical Exam Vital Signs Date Time Temp Pulse Resp B/P (MAP) Pulse Ox O2 Delivery O2 Flow Rate FiO2 07/24/17 13:08 91 18 101/63 97 Room Air 07/24/17 11:09 36.3 110 18 113/79 97 Room Air General Appearance: WD/WN, no apparent distress Head: normocephalic, atraumatic Eyes: sclerae normal ENT: hearing grossly normal Neck: trachea midline Respiratory/Chest: chest non-tender, normal breath sounds, no respiratory distress, no accessory muscle use Cardiovascular: regular rate, rhythm, no murmur Abdomen/GI: soft, no organomegaly, no pulsatile mass, + tenderness (RLQ with guaring and rebound), + guarding (RLQ) Back: normal inspection Extremities/Musculoskelatal: normal inspection, no pedal edema Neurologic/Psych: alert, normal mood/affect, oriented x 3 Skin: normal color, warm/dry, no rash Lymphatic: no adenopathy Diagnostics Laboratory Results Results Past 24 Hours Test 07/24/17 11:36 07/24/17 14:00 Range/Units White Blood Count 8.71 4.8-10.8 K/uL Red Blood Count 4.62 4.2-5.4 M/uL Hemoglobin 14.6 12.0-16.0 g/dL Hematocrit 40.7 37-47 % Mean Corpuscular Volume 88.1 80-100 fL Mean Corpuscular Hemoglobin 31.6 25-34 pg Mean Corpuscular Hemoglobin Concent 35.9 32-36 g/dl Platelet Count 213 130-400 K/uL Mean Platelet Volume 9.5 7.4-10.4 fL Neutrophils (%) (Auto) 78.8 % Lymphocytes (%) (Auto) 14.5 % Monocytes (%) (Auto) 6.3 % Eosinophils (%) (Auto) 0.1 % Basophils (%) (Auto) 0.1 % Neutrophils # (Auto) 6.86 1.4-6.5 K/uL Lymphocytes # (Auto) 1.26 1.2-3.4 K/uL Monocytes # (Auto) 0.55 0.11-0.59 K/uL Eosinophils # (Auto) 0.01 0-0.5 K/uL Basophils # (Auto) 0.01 0-0.2 K/uL RDW Standard Deviation 42.5 36.4-46.3 fL RDW Coefficient of Variation 13.2 11.5-14.5 % Immature Granulocyte % (Auto) 0.2 % Immature Granulocyte # (Auto) 0.02 0.00-0.02 K/uL Sodium Level 137 136-145 mmol/L Potassium Level 3.3 3.5-5.1 mmol/L Chloride Level 105 98-107 mmol/L Carbon Dioxide Level 24 21-32 mmol/L Anion Gap 8.0 3-11 mmol/L Blood Urea Nitrogen 15 7-18 mg/dl Creatinine 1.03 0.60-1.20 mg/dl Est Creatinine Clear Calc Drug Dose 74.0 ml/min Estimated GFR () 79.3 Estimated GFR (Non- 68.4 BUN/Creatinine Ratio 14.7 10-20 Random Glucose 76 70-99 mg/dl Calcium Level 8.6 8.5-10.1 mg/dl Total Bilirubin 0.8 0.2-1 mg/dl Aspartate Amino Transf (AST/SGOT) 15 15-37 U/L Alanine Aminotransferase (ALT/SGPT) 20 12-78 U/L Alkaline Phosphatase 117 45-117 U/L Total Protein 8.3 6.4-8.2 gm/dl Albumin 4.0 3.4-5.0 gm/dl Globulin 4.3 2.5-4.0 gm/dl Albumin/Globulin Ratio 0.9 0.9-2 Lipase 60 73-393 U/L Diagnostic Radiology ABD/PELVIS IV CONTRAST ONLY CLINICAL HISTORY: 41 years-old Female presenting with ABD PAIN, POSS APPY, IV CONTRAST ONLY. TECHNIQUE: Multidetector CT of the abdomen and pelvis was performed after the administration of intravenous contrast. IV contrast: 120 mL of Optiray 320. A dose lowering technique was used consistent with the principles of ALARA (as low as reasonably achievable). COMPARISON: None. CT DOSE (mGy.cm): The estimated cumulative dose is 317.29 mGy.cm. FINDINGS: Hand Fabric Cutter topogram: Cholecystectomy clips noted. Lung bases: Lungs and pleural spaces clear. Normal heart size. No pericardial or pleural effusion. Liver: Normal morphology. No liver lesion. Patent hepatic vasculature. Biliary: Mild biliary ductal prominence likely a reservoir effect in the post cholecystectomy state. Gallbladder surgically absent. Pancreas: Normal. Spleen: Normal. Adrenal glands: Normal. Kidneys and ureters: Normal. No hydronephrosis. Bladder: Incompletely evaluated secondary to underdistention. Pelvic organs: Normal. Bowel: The appendix is mildly prominent measuring slightly more than 6 mm in diameter with minimal mucosal hyperenhancement suggested. However, no extensive periappendiceal inflammatory change. Mildly distended and fluid-filled loop of distal ileum in the pelvis. No significant small bowel wall thickening or evidence of perienteric inflammatory change. No convincing evidence of bowel obstruction significant fluid in the distal small bowel. Peritoneal cavity: Trace free fluid in the pelvis. Lymph nodes: No enlarged lymph nodes in the abdomen or pelvis. Vasculature: Aorta and IVC patent and normal in caliber. Abdominal wall: Normal. Musculoskeletal: Normal. IMPRESSION: 1. Nonspecific distention of distal ileum without evidence of bowel wall thickening or perienteric inflammatory change. Additionally, the degree of fluid in the distal ileum is somewhat unexpected. These subtle findings could suggest potential enteritis or celiac disease. Alternatively, this could be secondarily reactive and related to the presence of a mild ileus. 2. The appendix is mildly prominent with possible mucosal hyperenhancement. Early appendicitis is not excluded. However, no extensive periappendiceal inflammatory change. Continued follow-up is recommended. The position of the appendix would likely be amenable to subsequent ultrasound examination for follow-up if clinically desired. Impression Assessment and Plan 41 year-old female with one day history of abdominal pain that progressively increased last evening. Pain now located more so in the right lower abdomen. Pain worse with any movement or walking. CT scan showing appendix mildly prominent with possible mucosal hyperenhancement. Early appendicitis is not excluded. Some distal ileal distention which could be enteritis or celiacs disease. Abdominal examination soft however RLQ tenderness with rebound and guarding. Plan: Given patient's abdominal examination and signs of possible early acute appendicitis on CT scan, plan to take patient to operating room for laparoscopic appendectomy possible open. Patient was informed of procedure and risks including bleeding, infection, injury to surrounding organs/tissues, staple leak, and cardiopulmonary complications. Informed consent obtained. Will admit for observation this evening and depending on operating room findings most likely will be discharged home tomorrow on POD # 1. Will given 2 gms Cefoxitin IV pre-op Keep pt NPO May pump prior to OR procedure. Dr. Marshall has seen and examined patient, agrees with above. VTE Prophylaxis VTE Risk Assessment Done? Y/N: Yes Risk Level: Low
[2017-07-24 14:44] VITALS: O2SAT 97; Ht 172.7 cm; Wt 68.4 kg
[2017-07-24] MEDS ORDERED: IV FLUIDS COMPLETED PRN (14:45)
[2017-07-24] MEDS ORDERED: CEFOXITIN IV 2,000 MG in DEXTROSE 5% 50ML 50 ML IV SCH (15:00)
--- NOTE | 2017-07-24 15:34 | History & Physical Bridge Note ---
H&P Re-Evaluation Bridge Note: I have examined the patient, reviewed the History & Physical and in the interval since the performance of the History & Physical I have noted the following changes of clinical significance: No changes noted
[2017-07-24] MEDS ORDERED: MIDAZOLAM HCL 1 MG/ML 2ML VIAL ONE (15:36)
[2017-07-24] MEDS ORDERED: FENTANYL CITRATE INJ 50 MCG/1 ML 2 ML VIAL ONE ×3 (15:36→16:51)
[2017-07-24] MEDS ORDERED: BACITRACIN OINT 15 GM TUBE ONE (15:38)
[2017-07-24] MEDS ORDERED: LIDOCAINE HCL 1% 20 ML VIAL ONE (15:38)
[2017-07-24] MEDS ORDERED: BUPIVACAINE 0.5 % 5 MG/1 ML MPF 30ML VIAL ONE (15:38)
[2017-07-24] MEDS ORDERED: PROPOFOL IV EMULSION 10 MG/ML 20 ML VIAL IV ONE (15:39)
[2017-07-24] MEDS ORDERED: ONDANSETRON INJ 2 MG/ML 2 ML VIAL ONE ×2 (15:39→16:54)
[2017-07-24] MEDS ORDERED: LIDOCAINE HCL 2% 2 ML VIAL (20MG/ML) ONE (15:39)
[2017-07-24] MEDS ORDERED: ATROPINE SULFATE 0.1 MG/ML 5ML SYR IV PRN ×2 (15:45→16:00)
[2017-07-24] MEDS ORDERED: EpHEDrine SULFATE INJ 50 MG/ML AMP IV PRN (15:45)
[2017-07-24] MEDS ORDERED: PROMETHAZINE HCL INJ 6.25 MG in SODIUM CHLORIDE 0.9% 50ML 50 ML IV PRN (15:45)
[2017-07-24] MEDS ORDERED: FENTANYL CITRATE INJ 50 MCG/1 ML 2 ML VIAL IV PRN ×2 (15:45→16:00)
[2017-07-24] MEDS ORDERED: NURSING VERBAL MED ORDER ONE (16:00)
[2017-07-24] MEDS ORDERED: LACTATED RINGER'S 1000ML 1,000 ML IV SCH (16:15)
[2017-07-24] MEDS ORDERED: NEOSTIGMINE METHYLSULFATE 5 MG/5 ML SYR ONE (16:32)
[2017-07-24] MEDS ORDERED: ROCURONIUM BROMIDE 10 MG/ML 5 ML VIAL IV ONE (16:32)
[2017-07-24] MEDS ORDERED: GLYCOPYRROLATE INJ 0.2 MG/ML VIAL ONE (16:32)
--- NOTE | 2017-07-24 16:36 | EMERGENCY ROOM VISIT NOTE ---
History Report prepared by Sheila: Ok Fall Under the Supervision of: Dr. Booker Minor M.D. First contact with patient: 11:32 Chief Complaint: ABDOMINAL PAIN Stated Complaint: SEVERE ABDOMINAL PAIN REFERRED Nursing Triage Summary: pt states she has lower abdominal pain worse on the right with nausea and vomiting and diarehha started yesturday morning denies urinary symptoms History of Present Illness The patient is a 41 year old female who presents to the Emergency Room with complaints of constant abdominal pain since yesterday. She notes that after she ate yesterday around 1700, her abdominal pain worsened. She notes movement worsens the pain. She currently rates her pain an 8/10 in severity. She reports vomiting, chills, fever, and diarrhea. She reports a loss of appetite and reports that she is having trouble keeping her fluids down. She is unsure if there was any food that she may have eaten that may be contributing to these symptoms. She states the pain worsened throughout the night. She was seen at [facility] earlier today and was advised to come to the ED for evaluation. She is currently . She denies any history of diabetes, spleen issues, or kidney issues. She has a history of cholecystectomy. She denies any urinary symptoms. Source of History: patient Onset: since yesterday Position: abdomen Symptom Intensity: 8/10 Timing: constant Modifying Factors (Worsening): movement Associated Symptoms: + fevers, + chills, + vomiting, + diarrhea Note: She reports loss of appetite. Review of Systems See HPI for pertinent positives & negatives. A total of 10 systems reviewed and were otherwise negative. Past Medical & Surgical Medical Problems: (1) 38 weeks gestation of (2) Acute appendicitis (3) AMA (advanced maternal age) primigravida 35+ (4) Chest pain (5) Cholecystectomy (6) CHOLELITH W CHOLECYS NEC (7) Costochondritis (8) Gestational [-induced] hypertension without significant proteinuria , third trimester (9) Head injury (10) Hypothyroidism (11) Neck pain (12) RLQ abdominal pain (13) Syncope (14) Syncope (15) Unfavorable cervix in term Family History Diabetes mellitus FH: heart disease FHx: cancer Social History Smoking Status: Never Smoker Smokeless Tobacco Use: No Alcohol Use: none Drug Use: none Marital Status: single Housing Status: lives with family Occupation Status: employed Current/Historical Medications Scheduled Thyroid ([place] Thyroid), 1 TAB PO DAILY Allergies Coded Allergies: No Known Allergies (Verified , 07/24/17) Physical Exam Vital Signs Date Time Temp Pulse Resp B/P (MAP) Pulse Ox O2 Delivery O2 Flow Rate FiO2 07/24/17 17:35 81 17 107/64 100 Room Air 07/24/17 17:25 37 66 16 109/70 99 Room Air 07/24/17 17:15 66 16 108/67 100 Oxymask 10 07/24/17 17:05 86 16 115/73 100 Oxymask 10 07/24/17 16:58 36.9 91 16 116/78 100 Oxymask 10 07/24/17 15:16 36.4 95 18 109/57 (74) 98 Room Air 07/24/17 14:45 85 18 96/63 97 Room Air 07/24/17 14:44 97 Room Air 07/24/17 13:08 91 18 101/63 97 Room Air 07/24/17 11:09 36.3 110 18 113/79 97 Room Air Physical Exam GENERAL: Patient is in no acute distress. HEENT: No acute trauma, normocephalic atraumatic, mucous membranes moist, no nasal congestion, no scleral icterus. NECK: No stridor, no adenopathy, no meningismus, trachea is midline. LUNGS: Clear to auscultation bilaterally, no wheeze, no rhonchi, breath sounds equal. HEART: Without murmurs gallops or rubs, regular rate and rhythm. ABDOMEN: Soft, moderate tenderness in bilateral lower quadrants/pelvis, bowel sounds positive, no hernias, no peritonitis. EXTREMITIES: No cyanosis or edema, full range of motion of all the joints without pain or difficulty, no signs for acute trauma. NEUROLOGIC: Oriented x 3, no acute motor or sensory deficits, no focal weakness. SKIN: No rash, no jaundice, no diaphoresis. Medical Decision & Procedures ER Provider Diagnostic Interpretation: Radiology results as stated below per my review and radiologist interpretation: ABD/PELVIS IV CONTRAST ONLY CLINICAL HISTORY: 41 years-old Female presenting with ABD PAIN, POSS APPY, IV CONTRAST ONLY. TECHNIQUE: Multidetector CT of the abdomen and pelvis was performed after the administration of intravenous contrast. IV contrast: 120 mL of Optiray 320. A dose lowering technique was used consistent with the principles of ALARA (as low as reasonably achievable). COMPARISON: None. CT DOSE (mGy.cm): The estimated cumulative dose is 317.29 mGy.cm. FINDINGS: Interactive Media Marketing Specialist topogram: Cholecystectomy clips noted. Lung bases: Lungs and pleural spaces clear. Normal heart size. No pericardial or pleural effusion. Liver: Normal morphology. No liver lesion. Patent hepatic vasculature. Biliary: Mild biliary ductal prominence likely a reservoir effect in the post cholecystectomy state. Gallbladder surgically absent. Pancreas: Normal. Spleen: Normal. Adrenal glands: Normal. Kidneys and ureters: Normal. No hydronephrosis. Bladder: Incompletely evaluated secondary to underdistention. Pelvic organs: Normal. Bowel: The appendix is mildly prominent measuring slightly more than 6 mm in diameter with minimal mucosal hyperenhancement suggested. However, no extensive periappendiceal inflammatory change. Mildly distended and fluid-filled loop of distal ileum in the pelvis. No significant small bowel wall thickening or evidence of perienteric inflammatory change. No convincing evidence of bowel obstruction significant fluid in the distal small bowel. Peritoneal cavity: Trace free fluid in the pelvis. Lymph nodes: No enlarged lymph nodes in the abdomen or pelvis. Vasculature: Aorta and IVC patent and normal in caliber. Abdominal wall: Normal. Musculoskeletal: Normal. IMPRESSION: 1. Nonspecific distention of distal ileum without evidence of bowel wall thickening or perienteric inflammatory change. Additionally, the degree of fluid in the distal ileum is somewhat unexpected. These subtle findings could suggest potential enteritis or celiac disease. Alternatively, this could be secondarily reactive and related to the presence of a mild ileus. 2. The appendix is mildly prominent with possible mucosal hyperenhancement. Early appendicitis is not excluded. However, no extensive periappendiceal inflammatory change. Continued follow-up is recommended. The position of the appendix would likely be amenable to subsequent ultrasound examination for follow-up if clinically desired. The report will be called/faxed according to standard departmental protocol. Electronically signed by: Nitish Nam M.D. 07/24/2017 12:36 PM Dictated Date/Time: 07/24/2017 12:28 PM Laboratory Results 07/24/17 11:36 Red Blood Count 4.62, Mean Corpuscular Volume 88.1, Mean Corpuscular Hemoglobin 31.6, Mean Corpuscular Hemoglobin Concent 35.9, Mean Platelet Volume 9.5, Neutrophils (%) (Auto) 78.8, Lymphocytes (%) (Auto) 14.5, Monocytes (%) (Auto) 6.3, Eosinophils (%) (Auto) 0.1, Basophils (%) (Auto) 0.1, Neutrophils # (Auto) 6.86, Lymphocytes # (Auto) 1.26, Monocytes # (Auto) 0.55, Eosinophils # (Auto) 0.01, Basophils # (Auto) 0.01 07/24/17 11:36 Test 07/24/17 11:36 07/24/17 14:00 07/24/17 15:45 White Blood Count 8.71 K/uL (4.8-10.8) Red Blood Count 4.62 M/uL (4.2-5.4) Hemoglobin 14.6 g/dL (12.0-16.0) Hematocrit 40.7 % (37-47) Mean Corpuscular Volume 88.1 fL (80-100) Mean Corpuscular Hemoglobin 31.6 pg (25-34) Mean Corpuscular Hemoglobin Concent 35.9 g/dl (32-36) Platelet Count 213 K/uL (130-400) Mean Platelet Volume 9.5 fL (7.4-10.4) Neutrophils (%) (Auto) 78.8 % Lymphocytes (%) (Auto) 14.5 % Monocytes (%) (Auto) 6.3 % Eosinophils (%) (Auto) 0.1 % Basophils (%) (Auto) 0.1 % Neutrophils # (Auto) 6.86 K/uL (1.4-6.5) Lymphocytes # (Auto) 1.26 K/uL (1.2-3.4) Monocytes # (Auto) 0.55 K/uL (0.11-0.59) Eosinophils # (Auto) 0.01 K/uL (0-0.5) Basophils # (Auto) 0.01 K/uL (0-0.2) RDW Standard Deviation 42.5 fL (36.4-46.3) RDW Coefficient of Variation 13.2 % (11.5-14.5) Immature Granulocyte % (Auto) 0.2 % Immature Granulocyte # (Auto) 0.02 K/uL (0.00-0.02) Anion Gap 8.0 mmol/L (3-11) Est Creatinine Clear Calc Drug Dose 74.0 ml/min Estimated GFR () 79.3 Estimated GFR (Non- 68.4 BUN/Creatinine Ratio 14.7 (10-20) Calcium Level 8.6 mg/dl (8.5-10.1) Total Bilirubin 0.8 mg/dl (0.2-1) Aspartate Amino Transf (AST/SGOT) 15 U/L (15-37) Alanine Aminotransferase (ALT/SGPT) 20 U/L (12-78) Alkaline Phosphatase 117 U/L (45-117) Total Protein 8.3 gm/dl (6.4-8.2) Albumin 4.0 gm/dl (3.4-5.0) Globulin 4.3 gm/dl (2.5-4.0) Albumin/Globulin Ratio 0.9 (0.9-2) Lipase 60 U/L (73-393) Urine Color YELLOW Urine Appearance CLEAR (CLEAR) Urine pH 6.0 (4.5-7.5) Urine Specific [place] > 1.045 (1.000-1.030) Urine Protein TRACE (NEG) Urine Glucose (UA) NEG (NEG) Urine Ketones 1+ (NEG) Urine Occult Blood NEG (NEG) Urine Nitrite NEG (NEG) Urine Bilirubin NEG (NEG) Urine Urobilinogen NEG (NEG) Urine Leukocyte Esterase NEG (NEG) Urine WBC (Auto) /hpf (0-5) Urine RBC (Auto) /hpf (0-4) Urine Hyaline Casts (Auto) /lpf (0-5) Urine Epithelial Cells (Auto) /lpf (0-5) Urine Bacteria (Auto) (NEG) Urine RBC 0-4 /hpf (0-4) Urine WBC 0 /hpf (0-5) Urine Epithelial Cells 5-10 /lpf (0-5) Urine Bacteria 1+ (NEG) Bedside Urine Test NEG (NEG) Laboratory results reviewed by me. Medications Administered Medications (Trade) Dose Ordered Sig/Rickey Route Start Time Stop Time Status Last Admin Dose Admin Ondansetron HCl (Zofran Inj) 4 mg NOW STAT IV 07/24/17 11:38 07/24/17 11:40 DC 07/24/17 11:55 4 MG Sodium Chloride 1,000 ml @ 999 mls/hr Q1H1M STAT IV 07/24/17 11:38 07/24/17 12:38 DC 07/24/17 11:56 999 MLS/HR Ketorolac Tromethamine (Toradol Inj) 30 mg NOW STAT IV 07/24/17 11:38 07/24/17 11:40 DC 07/24/17 11:56 30 MG Sodium Chloride 500 ml @ 999 mls/hr Q31M STAT IV 07/24/17 13:20 07/24/17 13:50 DC 07/24/17 13:20 999 MLS/HR Cefoxitin Sodium 2000 mg/Dextrose 60 ml @ 120 mls/hr TODAY@1500 IV 07/24/17 15:00 07/24/17 23:59 07/24/17 14:54 120 MLS/HR Lidocaine HCl (Xylocaine 1% Inj (Local)) 20 ml STK-MED ONCE .ROUTE 07/24/17 15:38 07/24/17 15:39 DC 07/24/17 16:37 20 ML Bacitracin (Bacitracin Oint) 45 appln STK-MED ONCE .ROUTE 07/24/17 15:38 07/24/17 15:39 DC 07/24/17 16:37 45 APPLN Bupivacaine HCl (Marcaine 0.5% MPF Inj) 30 ml STK-MED ONCE .ROUTE 07/24/17 15:38 07/24/17 15:39 DC 07/24/17 16:37 30 ML ED Course 1133: The patient was evaluated in room A3. A complete history and physical exam was performed. 1138: Ordered Toradol 30 mg IV, Sodium Chloride 1,000 ml @ 999 mls/hr IV, and Zofran 4 mg IV 1228: I reassessed the patient at this time. She is resting comfortably. I discussed the results and treatment plan with the patient. I answered all pertaining questions that she had. She expressed understanding and verbalized agreement. 1230: Ordered Sodium Chloride 500 ml @ 999 mls/hr IV 1405: I [place] Marshall, [facility] [place]. We discussed the patient's case. The patient will be further evaluated. 1428: I reassessed the patient at this time. I updated the patient regarding the treatment plan. Medical Decision The patient is a 41 year old female who presents to the ED with complaints of abdominal pain. Differential diagnoses considered include appendicitis, diverticulitis, mesenteric adenitis, colitis, food borne illness, UTI, and viral illness. There is no leukocytosis or concerning anemia. No significant electrolyte abnormality, kidney failure or hepatitis. There is no pancreatitis. Urinalysis does not show infection. Abdominal and pelvis CT shows a possible enteritis, no bowel obstruction. The appendix was slightly large although there was no surrounding inflammation. On my exam, the patient was tender in both lower quadrants of the abdomen. There was no true peritonitis. She was not febrile or toxic. The patient received IV saline, IV Zofran and IV Toradol, she still has pain but seems more comfortable. I spoke with general surgery. They saw the patient in our ED. The patient will be taken to the operating room for possible appendicitis. The patient is aware of her findings. The disease case manager rn and has been involved. Medication Reconcilliation Current Medication List: was personally reviewed by me Blood Pressure Screening Patient's blood pressure: Normal blood pressure Consults Time Called: 1256 Consulting Physician: PAIGE Galarza general surgeon Returned Call: 1405 I spoke with PAIGE Galarza general surgeon. We discussed the patient's case. The patient will be further evaluated. Impression Primary Impression: Nausea, vomiting, and diarrhea Additional Impression: Lower abdominal pain Scribe Attestation The scribe's documentation has been prepared under my direction and personally reviewed by me in its entirety. I confirm that the note above accurately reflects all work, treatment, procedures, and medical decision making performed by me. Departure Information Dispostion Being Evaluated By Surgeon Referrals Deedee Estrada, C.R.N.P. (PCP) Patient Instructions My [facility] Problem Qualifiers
--- NOTE | 2017-07-24 16:38 | [facility] Post Operative Brief Note ---
Immediate Operative Summary Operative Date Jul 24, 2017. Pre-Operative Diagnosis acute appendicitis Post-Operative Diagnosis acute appendicitis Procedure(s) Performed Laparoscopic appendectomy Surgeon Dr. Marshall Career Development Manager Surgeon(s) Afshan FAN Estimated Blood Loss 10ML Findings Consistent with Post-Op Diagnosis acute appendicitis Fluids (cc crystalloids) 600ml Specimens A: Appendix Drains None Anesthesia Type General Complication(s) none Disposition Accompanied Pt To Recover: yes Disposition: Recovery Room / PACU
[2017-07-24] MEDS ORDERED: HYDROmorphone INJ 1 MG/ML SYR IV PRN (17:00)
--- NOTE | 2017-07-24 17:34 | Anesthesiology Progress Note ---
Anesthesia Post Op Note Date & Time Jul 24, 2017 at 17:34 Vital Signs Pain Intensity: 0 Vital Signs Past 12 Hours Date Time Temp Pulse Resp B/P (MAP) Pulse Ox O2 Delivery O2 Flow Rate FiO2 07/24/17 17:25 37 66 16 109/70 99 Room Air 07/24/17 17:15 66 16 108/67 100 Oxymask 10 07/24/17 17:05 86 16 115/73 100 Oxymask 10 07/24/17 16:58 36.9 91 16 116/78 100 Oxymask 10 07/24/17 15:16 36.4 95 18 109/57 (74) 98 Room Air 07/24/17 14:45 85 18 96/63 97 Room Air 07/24/17 14:44 97 Room Air 07/24/17 13:08 91 18 101/63 97 Room Air 07/24/17 11:09 36.3 110 18 113/79 97 Room Air Notes Mental Status: alert / awake / arousable, participated in evaluation Pt Amnestic to Procedure: Yes Nausea / Vomiting: adequately controlled Pain: adequately controlled Airway Patency, RR, SpO2: stable & adequate BP & HR: stable & adequate Hydration State: stable & adequate Anesthetic Complications: no major complications apparent
[2017-07-24 17:45] VITALS: BP_SYST 106; BP_SYST 108; BP_DIAS 67; BP_DIAS 69; PULSE 75; PULSE 85; TEMP 36.4; TEMP 37; O2SAT 96; O2SAT 97
[2017-07-24 18:15] VITALS: BP 106/69; PULSE 74; TEMP 36.5; O2SAT 99
[2017-07-24 18:45] VITALS: BP 109/72; PULSE 98; TEMP 36.6; O2SAT 98
[2017-07-24] MEDS: D5W AND 1/2NSS + 20MEQ KCL 1,000 ML IV SCH (18:59)
[2017-07-24 20:45] VITALS: BP 105/67; PULSE 70; TEMP 36.6; O2SAT 98
[2017-07-24] MEDS: OXYCODONE/ACETAMINOPHEN 5-325 TAB PO PRN (21:36)
[2017-07-24 22:30] VITALS: BP 96/61; PULSE 70; TEMP 36.6; O2SAT 96
--- NOTE | 2017-07-25 00:15 | OPERATIVE REPORT ---
DATE OF OPERATION: 07/24/2017 PREOPERATIVE DIAGNOSIS: Acute appendicitis. POSTOPERATIVE DIAGNOSIS: Same. PROCEDURE: Laparoscopic appendectomy. SURGEON: Dr. Mya Marshall. THIRD RAIL INSTALLER: Afshan White PA-C ANESTHESIA: General. ESTIMATED BLOOD LOSS: About 10 mL. FINDINGS: Acute appendicitis. COMPLICATIONS: None. INDICATIONS FOR THE PROCEDURE: This is a 41-year-old female who presented to the ED with right lower quadrant pain. The patient had a CT scan that showed possible acute appendicitis. We decided to take the patient to the OR and do laparoscopic appendectomy, possible open. I did talk to the patient about the benefit and risk, alternate procedure. I indicated the risks may include but not limited such as bleeding, infection, abscess, injury to bowel, leak from the bowel, negative for acute appendicitis. The patient understands. She signed informed consent and she agreed to proceed with the procedure, I did answer all questions. DETAILS OF PROCEDURE: We brought the patient to the OR, put the patient in the supine position. The patient received SCDs on bilateral legs to prevent DVT. Also, the patient received 2 gram cefoxitin IV for prophylactic antibiotic. The patient received general anesthesia without difficulty. The abdomen was prepped and draped in routine sterile fashion. After a timeout, I injected local anesthesia by using 1% lidocaine mixed with 0.5% Marcaine just above the umbilicus. Then I made a small incision just above umbilicus, opened fascia and opened peritoneum under direct vision. I put a Jayne trocar in, connected to CO2 to create pneumoperitoneum. Flow rate was 6 liter per minute. Pressure not more than 14 mmHg. Once we got a nice pneumoperitoneum, we put the camera in to look around the abdomen shows normal finding on the stomach, small bowel, large bowel, liver; however, the appendix showing inflammation, swollen. There was some fluid collection around the appendix, so was acute appendicitis. Then, we put another two 5 mm trocar on the left lower quadrant area and once all trocars in, I used a grasper to hold the appendix and used a harmonic to take down appendix, rechecked, no active bleeding. Then I used Endo-RUPA staple transection the base of the appendix, rechecked no active bleeding, no leak. Then we used a catch bag in to remove the appendix through the catch bag. Then we reinserted Jayne trocar in connected to CO2 to create pneumoperitoneum again to look around the abdomen, no active bleeding, no leak from the staple line and then we removed all trocars under direct vision. No active bleeding from trocar sites. The pneumoperitoneum was released. Then I closed the umbilical incision, fascial layer by using 0 Vicryl [id number] x2, closed subcutaneous layer by using 2-0 Vicryl interruptedly, closed skin by using 4-0 Vicryl continuous running and closed another two 5 mm trocar site skin only by using 4-0 Vicryl and we put the dressing on. The patient tolerated the procedure well. All the instrument, needle and sponge count correct x2 at the end of case. Specimen was sent to pathology. The patient transferred to recovery room in stable condition. After the procedure, I did talk to the patient's family member about the OR finding and procedure we did, they understand. I attest to the content of the Intraoperative Record and any orders documented therein. Any exceptions are noted below. MIRIAN
[2017-07-25] MEDS ORDERED: CEFTRIAXONE SOD INJ 1 GM in DEXTROSE 5% ADD-VANTAGE 50ML 50 ML IV SCH (03:00)
[2017-07-25 03:57] VITALS: BP 100/64; PULSE 66; TEMP 36.4; O2SAT 97
[2017-07-25 06:38] LABS: HEMATOCRIT 32.9 % (37-47); HEMOGLOBIN 11.4 g/dL (12.0-16.0); IG# 0.01 K/uL (0.00-0.02); LYMPH % 8.5 %; LYMPH ABS # 0.64 K/uL (1.2-3.4); MEAN CELL VOLUME 89.2 fL (80-100); MEAN CORPUSCULAR HEMOGLOBIN 30.9 pg (25-34); MEAN CORPUSCULAR HGB CONC 34.7 g/dl (32-36); MONO % 5.2 %; MONO ABS # 0.39 K/uL (0.11-0.59); NEUT % 86.2 %; NEUT ABS # 6.53 K/uL (1.4-6.5); PLATELET COUNT 190 K/uL (130-400); RED CELL DISTRIBUTION WIDTH CV 13.3 % (11.5-14.5); RED CELL DISTRIBUTION WIDTH SD 43.6 fL (36.4-46.3); WHITE BLOOD COUNT 7.57 K/uL (4.8-10.8)
[2017-07-25 07:00] VITALS: BP 95/58; PULSE 67; TEMP 36.7; O2SAT 98
[2017-07-25] MEDS: D5W AND 1/2NSS + 20MEQ KCL 1,000 ML IV SCH (07:07)
[2017-07-25 08:11] VITALS: O2SAT 98
[2017-07-25] MEDS: OXYCODONE/ACETAMINOPHEN 5-325 TAB PO PRN ×2 (08:29→12:36)
[2017-07-25 12:10] VITALS: BP 110/64; PULSE 57; TEMP 36.5; O2SAT 94
[2017-07-25] MEDS ORDERED: OXYC-57 PO (14:11)
--- NOTE | 2017-07-25 14:20 | Discharge Instructions ---
Discharge Instructions Date of Service Jul 25, 2017. Admission Reason for Admission: Acute Appendicitis, Rlq Abdominal Pain Discharge Discharge Diagnosis / Problem: same Discharge Goals Goal(s): Decrease discomfort, Improve function Activity Recommendations Activity Limitations: per Instructions/Follow-up section No heavy lifting over 20 pounds for 2 weeks No strenuous activity until cleared by surgeon No submerging incisions underwater for 2 weeks (no bathing, swimming, or hot tubs) No driving while taking narcotic pain medication or until you are pain free . Instructions / Follow-Up Instructions / Follow-Up You may shower in 4 days, sponge bath and wash hair in meantime. Try to keep dressings clean and dry. After 4 days you may shower and replace dressings as needed. Leave steri strips on incisions for 7 days and then remove. They may fall off on their own that is okay. Walking and light activity is encouraged to prevent blood clots from forming in your legs. Stairs is okay just take it easy in the next few days. You will be given prescription for Percocet (narcotic pain medication) as needed for moderate to severe pain. This medication may make you drowsy. This medication can also cause constipation. Drink plenty of water daily and daily activity usually helps but you can also take OTC stool softener if needed. You may take extra strength Tylenol or Ibuprofen as needed for mild pain. You may breastfeed while taking Percocet but try to breastfeed prior to taking dose of Percocet. Taking Percocet while can cause infant sedation. Use should be limited to a few days and a maximum dosage of 30 mg daily with close monitoring. Stop use and call provider if the infant appears to be more sleepy, has increased difficulty with or breathing, or appears to be weak. Follow-up in surgical office in 1-2 weeks. Please call office at [phone] to make an appointment. Current Hospital Diet Patient's current hospital diet: Regular Diet Discharge Diet Recommended Diet: Regular Diet Procedures Procedures Performed: Laparoscopic appendectomy Pending Studies Studies pending at discharge: yes List of pending studies: Appendix pathology will be reviewed at follow up visit Medical Emergencies . Who to Call and When: Medical Emergencies: If at any time you feel your situation is an emergency, please call 911 immediately. . Non-Emergent Contact Non-Emergency issues call your: Primary Care Provider, Surgeon Call Non-Emergent contact if: you have a fever, temperature is above 101, your pain is not controlled, your pain is worsening, your pain is unusual for you, wound has increased drainage, wound has increased redness, wound has increased pain . "Provider Documentation" section prepared by Afshan White. . VTE Core Measure Inpt VTE Proph given/why not?: SCD's [place] Drug Monitoring Program Search Results: patient reviewed within database, no issues identified
[2017-07-25 14:33] VITALS: BP 110/64; PULSE 57; TEMP 36.5; O2SAT 94
--- NOTE | 2017-07-25 14:44 | Surgery Progress Note ---
Surgery Progress Note Date of Service Jul 25, 2017. LATE ENTRY, PATIENT SEEN AT 8:00 AM Subjective Post OP Day: 1 + feeling well, + ambulating (to bathroom), + pain controlled, + diet ( tolerating regular diet), No chest pain, No bowel movement, No flatus, No nausea , No vomiting preoperative pain has resolved now just surgical pain Objective Vital Signs: Date Time Temp Pulse Resp B/P (MAP) Pulse Ox O2 Delivery O2 Flow Rate FiO2 07/25/17 14:33 36.5 57 16 94 Room Air 07/25/17 12:10 36.5 57 16 110/64 (79) 94 Room Air 07/25/17 08:11 98 Room Air 07/25/17 07:00 36.7 67 16 95/58 (70) 98 Room Air 07/25/17 03:57 36.4 66 16 100/64 (76) 97 Room Air 07/24/17 23:50 Room Air 07/24/17 22:30 36.6 70 18 96/61 (73) 96 Room Air 07/24/17 20:45 36.6 70 19 105/67 (80) 98 Room Air 07/24/17 18:45 36.6 98 18 109/72 (84) 98 Room Air 07/24/17 18:15 36.5 74 16 106/69 (81) 99 Room Air 07/24/17 17:45 37.0 85 16 106/69 (81) 96 Room Air 07/24/17 17:45 36.4 75 18 108/67 (81) 97 Room Air 07/24/17 17:45 Room Air 07/24/17 17:45 96 Room Air 07/24/17 17:35 81 17 107/64 100 Room Air 07/24/17 17:25 37 66 16 109/70 99 Room Air 07/24/17 17:15 66 16 108/67 100 Oxymask 10 07/24/17 17:05 86 16 115/73 100 Oxymask 10 07/24/17 16:58 36.9 91 16 116/78 100 Oxymask 10 07/24/17 15:16 36.4 95 18 109/57 (74) 98 Room Air 07/24/17 14:45 85 18 96/63 97 Room Air 07/24/17 14:44 97 Room Air General Appearance: WD/WN, no apparent distress Head: normocephalic, atraumatic Neck: trachea midline Respiratory/Chest: lungs clear, normal breath sounds, no respiratory distress, no accessory muscle use Cardiovascular: regular rate, rhythm, no murmur Abdomen: non distended, soft, no organomegaly, no pulsatile mass, + tenderness (at incision sites and RLQ, appropriate post op) Incision(s): clean, dry (dressings inspected not incisions), intact, no erythema, no drainage Laboratory Results: Results Past 24 Hours Test 07/24/17 15:45 07/25/17 05:48 Range/Units Bedside Urine Test NEG NEG White Blood Count 7.57 4.8-10.8 K/uL Red Blood Count 3.69 4.2-5.4 M/uL Hemoglobin 11.4 12.0-16.0 g/dL Hematocrit 32.9 37-47 % Mean Corpuscular Volume 89.2 80-100 fL Mean Corpuscular Hemoglobin 30.9 25-34 pg Mean Corpuscular Hemoglobin Concent 34.7 32-36 g/dl Platelet Count 190 130-400 K/uL Mean Platelet Volume 10.0 7.4-10.4 fL Neutrophils (%) (Auto) 86.2 % Lymphocytes (%) (Auto) 8.5 % Monocytes (%) (Auto) 5.2 % Eosinophils (%) (Auto) 0.0 % Basophils (%) (Auto) 0.0 % Neutrophils # (Auto) 6.53 1.4-6.5 K/uL Lymphocytes # (Auto) 0.64 1.2-3.4 K/uL Monocytes # (Auto) 0.39 0.11-0.59 K/uL Eosinophils # (Auto) 0.00 0-0.5 K/uL Basophils # (Auto) 0.00 0-0.2 K/uL RDW Standard Deviation 43.6 36.4-46.3 fL RDW Coefficient of Variation 13.3 11.5-14.5 % Immature Granulocyte % (Auto) 0.1 % Immature Granulocyte # (Auto) 0.01 0.00-0.02 K/uL Assessment & Plan POD # 1 s/p laparoscopic appendectomy - vitals stable, asymptomatic hypotension - adequate urine output - pain controlled, minimal surgical pain - abdomen soft, nondistended +tenderness - afebrile post op Plan: Discharge home later today Encouraged ambulation in the hallway Continue PO Percocet as needed for pain Discharge instructions reviewed follow up surgical office 1-[address] Marshall has seen and examined patient, agrees with above
--- NOTE | 2017-07-27 15:52 | Discharge Summary ---
Discharge Summary Dates Admission Date / Time: Jul 24, 2017 at 14:18 Discharge Date: Jul 25, 2017 Dispostion / Condition Discharge Disposition: Home Condition at Discharge: Good Principal Diagnosis (1) Acute appendicitis (2) RLQ abdominal pain Problem List (1) AMA (advanced maternal age) primigravida 35+ (2) Gestational [-induced] hypertension without significant proteinuria , third trimester (3) Costochondritis (4) Neck pain (5) Syncope (6) Head injury (7) Cholecystectomy (8) Hypothyroidism Consultations / Procedures Consultations: None Procedures: Laparoscopic appendectomy Vaccinations: None Pending Studies / Follow-Up Appendix pathology, will be reviewed at follow up visit Medication Reconciliation New Medications: Oxycodone/Acetaminophen 5MG/325MG (Percocet 5MG/325MG) Tab 1 TABLET PO Q4H PRN for Pain, #18 TAB Continued Medications: Thyroid ([place] Thyroid) Unknown Strength Tab 1 TAB PO DAILY Admission HPI Per the Admitting provider: Morenita is a pleasant 41 year-old female who presented to emergency room with complaint of abdominal pain that started yesterday. Describes pain as generalized pain which increased last evening after dinner. Pain now more so in the right lower abdomen. Pain rated 8/10 currently. States that walking and any movement increase the pain. Associated sweats, chills, nausea, vomiting, and diarrhea. Also has noticed decreased appetite. No prior history of similar abdominal pain. No fevers, chest pain, shortness of breath, difficulty breathing, blood in stools, difficulty urinating or blood in urine. Currently breast feeding. No history of blood clots or use of blood thinning agents. ER evaluation showed no leukocytosis. CMP within normal limits other than slightly low potassium at 3.3. CT scan of abdomen and pelvis showed mild distention of distal ileum with increasing fluid in ileum however no wall thickening or signs of obstruction. This could be due to enteritis or celiacs disease. The appendix is mildly prominent with possible mucosal hyperenhancement. Early appendicitis is not excluded. Admission Exam Per the Admitting provider: General Appearance: WD/WN, no apparent distress Head: normocephalic, atraumatic Eyes: sclerae normal ENT: hearing grossly normal Neck: trachea midline Respiratory/Chest: chest non-tender, normal breath sounds, no respiratory distress, no accessory muscle use Cardiovascular: regular rate, rhythm, no murmur Abdomen/GI: soft, no organomegaly, no pulsatile mass, + tenderness (RLQ with guaring and rebound), + guarding (RLQ) Back: normal inspection Extremities/Musculoskelatal: normal inspection, no pedal edema Neurologic/Psych: alert, normal mood/affect, oriented x 3 Skin: normal color, warm/dry, no rash Lymphatic: no adenopathy Hospital Course (1) Acute appendicitis Patient was taken to operating room for laparoscopic appendectomy possible open by Dr. Marshall. Patient was found to have slightly enlarged distal appendix with inflammation consistent with early acute appendicitis. Appendix was removed. Patient tolerated procedure well without any complications. Patient was transferred to recovery and then to medical/surgical floor for postoperative care. IV fluids were started, post op antibiotics of Ceftriaxone started, PO Percocet with breakthrough IV Morphine/Dilaudid as needed for pain, IV Zofran as needed for nausea, regular diet, activity as tolerated, and SCDs. Patient was evaluated on POD # 1. Vitals stable, afebrile. Tolerating regular diet. Ambulating to bathroom. Urinating without difficulty. No nausea or vomiting. Preoperative pain resolved. Patient was discharged home late morning of POD # 1 in stable condition. (2) RLQ abdominal pain refer to above Discharge Instructions as given to patient Copies To Primary Care Provider: Deedee Estrada [email or web address]
== END 2017-07-25 15:38 | disposition home or self-care (01) ==
LOC: C.EDB 11:08 → C.MSW 14:18 → EDBEDREQ 14:37 → ENRESERV 15:26
PROVIDERS: ADMIT Surgery; ATTEND Surgery
DX: K35.80 Unspecified acute appendicitis (principal); E03.9 Hypothyroidism, unspecified; Z90.49 Acquired absence of other specified parts of digestive tract; Z83.3 Family history of diabetes mellitus; Z82.49 Family history of ischemic heart disease and other diseases of the circulatory system